=== PATIENT | male | born 2000 | race Caucasian/White ===

== ENCOUNTER 2020-04-26 19:06 | Emergency (ER) | payer OTHER ==
[~2020-04-26] VITALS: Ht 172.7 cm; Wt 69.5 kg
[2020-04-26 19:11] VITALS: BP 153/97
[2020-04-26] MEDS ORDERED: LIDOCAINE 1%, 10ML INFIL ONE (19:30)
[2020-04-26] MEDS ORDERED: LIDOCAINE-MPF 1%, 5ML ONE ×2 (19:43→19:44)
--- NOTE | 2020-04-26 19:59 | NUR ---
ERP TO BEDSIDE TO SUTURE.
[2020-04-26] MEDS ORDERED: NEOSPORIN OINT. PKT 1 PACKET ONE (20:23)
--- NOTE | 2020-04-26 20:28 | NUR ---
pt states he was washing dishes when a bowl broke. pt has been sitting on gurney, respirations even and unlabored, no signs of distress with call light and visitor at bedside for duration of stay.
== END 2020-04-26 20:47 | disposition home or self-care (01) ==
LOC: ED 20:39
DX: S61.210A Laceration without foreign body of right index finger without damage to nail, initial encounter (principal); S61.213A Laceration without foreign body of left middle finger without damage to nail, initial encounter; X58.XXXA Exposure to other specified factors, initial encounter; Y93.89 Activity, other specified; Y92.009 Unspecified place in unspecified non-institutional (private) residence as the place of occurrence of the external cause; Y99.8 Other external cause status
CPT/HCPCS: 12042; 99285